=== PATIENT | male | born 1960 | race Caucasian/White ===

== ENCOUNTER → 2020-01-11 | Outpatient (CLI) | payer OTHER ==
--- NOTE | 2020-01-11 14:29 | RAD ---
L-spine 3 views INDICATION: Pain. COMPARISON: None. FINDINGS: There are 5 lumbar type vertebrae. Alignment is anatomic. Bones are mildly demineralized. No fracture or aggressive osseous lesions are seen. Disc space narrowing is present most conspicuously at L4-L5 and at L5-S1 associated with endplate osteophytic spurring. Facet hypertrophic changes are present as well. These likely result in at least mild bilateral foraminal narrowing at L4-L5 and L5-S1. Central canal stenosis may be present but is not well shown. Visualized pelvis is unremarkable. Soft tissues show minimal calcifications in the abdominal aorta. IMPRESSION: Multilevel lumbar spinal degenerative spondylosis. No fracture or malalignment shown. Left knee 2 views INDICATION: Left knee pain. COMPARISON: None. FINDINGS: Normal alignment and mineralization. No fracture or aggressive osseous lesions. The soft tissues are unremarkable. IMPRESSION: Negative two-view left knee. Electronically signed by: Danielle Devine MD (01/11/2020 2:26 PM) [id number]
== END ==
LOC: DXRAD 12:30
PROVIDERS: ATTEND Anesthesiology Pain Medicine
DX: M47.816 Spondylosis without myelopathy or radiculopathy, lumbar region (principal); M48.07 Spinal stenosis, lumbosacral region; M81.8 Other osteoporosis without current pathological fracture
CPT/HCPCS: 72100; 73560